=== PATIENT | male | born 1980 | race Caucasian/White ===

== ENCOUNTER 2017-02-27 17:41 | Emergency (ER) | payer SELFPAY ==
[~2017-02-27] VITALS: Ht 175.3 cm; Wt 81.6 kg
[2017-02-27] MEDS ORDERED: LORazepam 2 MG/ML VIAL (FOR ER USE) IM ONE (18:00)
[2017-02-27] MEDS ORDERED: DIPHENHYDRAMINE INJ 50 MG/ML VIAL IM ONE (18:00)
[2017-02-27] MEDS ORDERED: HALOPERIDOL LACTATE 5 MG/ML VIAL IM ONE (18:00)
[2017-02-27] MEDS ORDERED: KETAMINE HCL 500 MG/10 ML VIAL IM ONE (18:15)
[2017-02-28 05:35] VITALS: BP_SYST 106
== END 2017-02-28 05:35 | disposition home or self-care (01) ==
LOC: SED 17:41
DX: F10.129 Alcohol abuse with intoxication, unspecified (principal)
CPT/HCPCS: 96372; 99284; J1200; J1630; J2060

== ENCOUNTER 2018-07-15 17:36 | Emergency (ER) | payer MEDICAID ==
[~2018-07-15] VITALS: Ht 182.9 cm; Wt 59.0 kg
[2018-07-15 17:55] VITALS: BP_SYST 132
[2018-07-15] MEDS ORDERED: HYDROcodone/ACETAMIN 7.5-325 MG TAB PO ONE (20:15)
[2018-07-15] MEDS ORDERED: HYDROcodone/ACETAMIN 7.5-325 MG TAB ONE (20:28)
[2018-07-16 00:26] VITALS: BP_SYST 128
== END 2018-07-16 00:26 | disposition home or self-care (01) ==
LOC: SED 17:36
DX: S02.601A Fracture of unspecified part of body of right mandible, initial encounter for closed fracture (principal); S02.602A Fracture of unspecified part of body of left mandible, initial encounter for closed fracture; F17.210 Nicotine dependence, cigarettes, uncomplicated; Z71.6 Tobacco abuse counseling; Y04.0XXA Assault by unarmed brawl or fight, initial encounter; Y93.89 Activity, other specified; Y92.89 Other specified places as the place of occurrence of the external cause; Y99.8 Other external cause status
CPT/HCPCS: 70486-TC; 99284

== ENCOUNTER 2018-09-11 21:55 | Emergency (ER) | payer MEDICAID ==
[2018-09-11] MEDS ORDERED: LORazepam 2 MG/ML VIAL (FOR ER USE) IM ONE (22:00)
[2018-09-11] MEDS ORDERED: HALOPERIDOL LACTATE 5 MG/ML VIAL IM ONE (22:00)
[2018-09-11] MEDS ORDERED: DIPHENHYDRAMINE INJ 50 MG/ML VIAL IM ONE (22:00)
[2018-09-11 23:16] LABS: BARBITURATE, URINE NEGATIVE (NEG <=200); BENZODIAZEPINE, URINE NEGATIVE (NEG <=150); CANNABINOID, URINE POSITIVE (NEG <=50); COCAINE, URINE NEGATIVE (NEG <=150); METHAMPHETAMINES SCREEN,URINE POSITIVE (NEG <=500); OPIATE, URINE NEGATIVE (NEG <=100); PHENCYCLIDINE SCREEN,URINE NEGATIVE (NEG <=25); UR TRICYCLIC ANTIDEPRESSANTS NEGATIVE (NEG <=300); URINE AMPHETAMINE POSITIVE (NEG <=500); URINE METHADONE NEGATIVE (NEG <=200); URINE OXYCODONE SCREEN NEGATIVE (NEG <=100); URINE PROPOXYPHENE SCREEN NEGATIVE (NEG <=300)
[2018-09-11 23:22] LABS: BASOPHILS # (AUTO) 0.1 K/uL (0.0-0.2); BASOPHILS % (AUTO) 1.1 % (0.0-2.0); EOSINOPHILS # (AUTO) 0.2 K/uL (0.0-0.4); EOSINOPHILS % (AUTO) 3.1 % (0.0-4.0); HEMATOCRIT 43.2 % (36-54); HEMOGLOBIN 14.7 g/dL (14.0-18.0); LYMPHOCYTES # (AUTO) 2.6 K/uL (1.0-5.5); LYMPHOCYTES % (AUTO) 42.7 % (20.5-51.5); MEAN CORPUSCULAR HEMOGLOBIN 32 pg (27-31); MEAN CORPUSCULAR HGB CONC 34 % (32-36); MEAN CORPUSCULAR VOLUME 94 fL (79.0-98.0); MONOCYTES # (AUTO) 0.4 K/uL (0.0-1.0); MONOCYTES % (AUTO) 7.1 % (1.7-9.3); NEUTROPHILS # (AUTO) 2.7 K/uL (1.8-7.7); PLATELET COUNT (AUTO) 373 K/uL (130-430); RED BLOOD CELL COUNT(AUTO) 4.59 MIL/uL (4.2-6.2); RED CELL DISTRIBUTION WIDTH 13.4 % (9.0-15.0)
[2018-09-11 23:33] LABS: ANION GAP 13 (5-15); CALCIUM 8.5 mg/dL (8.4-11.0); CHLORIDE 103 mmol/L (98-107); CREATININE 0.87 mg/dL (0.55-1.30); GLUCOSE 78 mg/dL (70-99); POTASSIUM 3.5 mmol/L (3.5-5.1); SODIUM SERUM 138 mmol/L (136-145); UREA NITROGEN, BLOOD 12 mg/dL (8-21)
[2018-09-11 23:34] LABS: GFR AFRICAN AMERICAN 126 mL/min (>90)
[2018-09-11 23:54] LABS: ALANINE AMINOTRANSFERASE 36 U/L (12-78); ALBUMIN 3.6 g/dL (3.4-4.8); ALCOHOL, BLOOD 297 mg/dL (<10); ASPARTATE AMINOTRANSFERASE 40 U/L (10-37); TOTAL BILIRUBIN 0.3 mg/dL (0.0-1.0)
[2018-09-11 23:55] LABS: ACETAMINOPHEN < 1 ug/mL (1-30)
[2018-09-12 09:36] VITALS: BP_SYST 116
== END 2018-09-12 09:36 | disposition home or self-care (01) ==
LOC: SED 21:55
DX: F19.10 Other psychoactive substance abuse, uncomplicated (principal); R03.0 Elevated blood-pressure reading, without diagnosis of hypertension
CPT/HCPCS: 36415; 80053; 80307; 85025; 93005; 96372; 99284; G0480; G0481; G0482; J1200; J1630; J2060; 99283

== ENCOUNTER 2021-02-12 18:27 | Emergency (ER) | payer MEDICAID ==
[~2021-02-12] VITALS: Ht 167.6 cm; Wt 59.9 kg
--- NOTE | 2021-02-12 18:35 | NUR ---
Patient triaged and placed in waiting room. VSS and patient appears in no acute distress at this time. Accompanied by EMS and therapist , awaiting available bed, and MD notified of need for MSE.
--- NOTE | 2021-02-12 19:00 | NUR ---
Dr Bautista evaluating patient at bedside
--- NOTE | 2021-02-12 22:29 | NUR ---
pt bib bls run c/c etoh. pt gcs 15. denies SI or HI. denies any medical complaints. report received from [facility] bls unit. pt eloped prior to being placed in H1, pt eloped with girlfriend.
--- NOTE | 2021-02-12 22:32 | NUR ---
Pt eloped from ER at this time
== END 2021-02-12 22:00 | disposition left against medical advice (07) ==
LOC: SED 18:27
DX: S09.93XA Unspecified injury of face, initial encounter (principal); W18.39XA Other fall on same level, initial encounter; Y93.89 Activity, other specified; Y92.89 Other specified places as the place of occurrence of the external cause; Y99.8 Other external cause status; Z53.21 Procedure and treatment not carried out due to patient leaving prior to being seen by health care provider

== ENCOUNTER 2021-06-22 14:21 | Emergency (ER) | payer MEDICAID, SELFPAY ==
[~2021-06-22] VITALS: Ht 182.9 cm; Wt 68.0 kg
[2021-06-22 15:15] VITALS: BP_SYST 129
[2021-06-22] MEDS ORDERED: ACETAMINOPHEN 325 MG TABLET PO ONE (17:00)
== END 2021-06-22 17:02 | disposition left against medical advice (07) ==
LOC: SED 14:21
DX: R10.11 Right upper quadrant pain (principal)
CPT/HCPCS: 99281; 99283

== ENCOUNTER 2021-12-05 18:53 | Emergency (ER) | payer MEDICAID ==
[~2021-12-05] VITALS: Ht 177.8 cm; Wt 72.6 kg
[2021-12-05 18:53] VITALS: BP_SYST 96
[2021-12-05] MEDS ORDERED: NACL 0.9% 1,000 ML IV ONE (19:15)
[2021-12-05 19:45] LABS: BASOPHILS # (AUTO) 0.1 K/uL (0.0-0.2); BASOPHILS % (AUTO) 0.8 % (0.0-2.0); EOSINOPHILS % (AUTO) 0.4 % (0.0-4.0); HEMATOCRIT 40.4 % (36-54); LYMPHOCYTES # (AUTO) 1.4 K/uL (1.0-5.5); LYMPHOCYTES % (AUTO) 21.6 % (20.5-51.5); MEAN CORPUSCULAR HEMOGLOBIN 33 pg (27-31); MEAN CORPUSCULAR HGB CONC 35 % (32-36); MEAN CORPUSCULAR VOLUME 95 fL (79.0-98.0); MONOCYTES # (AUTO) 0.6 K/uL (0.0-1.0); MONOCYTES % (AUTO) 9.7 % (1.7-9.3); NEUTROPHILS # (AUTO) 4.5 K/uL (1.8-7.7); NEUTROPHILS % (AUTO) 67.5 % (40.0-70.0); PLATELET COUNT (AUTO) 343 K/uL (130-430); RED BLOOD CELL COUNT(AUTO) 4.24 MIL/uL (4.2-6.2); RED CELL DISTRIBUTION WIDTH 14.7 % (9.0-15.0); WHITE BLOOD COUNT (AUTO) 6.6 K/uL (4.8-10.8)
[2021-12-05 19:58] LABS: ANION GAP 13 (5-15); CALCIUM 7.8 mg/dL (8.4-11.0); CHLORIDE 99 mmol/L (98-107); CREATININE 1.08 mg/dL (0.55-1.30); GLUCOSE 126 mg/dL (70-99); POTASSIUM 3.7 mmol/L (3.5-5.1); SODIUM SERUM 135 mmol/L (136-145); UREA NITROGEN, BLOOD 12 mg/dL (8-21)
[2021-12-05 20:02] LABS: GFR AFRICAN AMERICAN 97 mL/min (>90)
[2021-12-05 20:05] LABS: ALANINE AMINOTRANSFERASE 235 U/L (12-78); ALBUMIN 2.5 g/dL (3.4-4.8); ASPARTATE AMINOTRANSFERASE 225 U/L (10-37)
[2021-12-05 20:10] LABS: ACETAMINOPHEN < 1 ug/mL (1-30); ALCOHOL, BLOOD 479 mg/dL (<10)
--- NOTE | 2021-12-05 20:39 | NUR ---
PT WILL NOT ALLOW TO BE PLACED ON MONITOR
--- NOTE | 2021-12-05 20:58 | NUR ---
Pt to CT at this time
--- NOTE | 2021-12-05 21:18 | NUR ---
Pt back from CT
--- NOTE | 2021-12-05 21:20 | NUR ---
Placed in room 07 . Placed on cardiac technologist, blood pressure machine and pulse oximeter. To gown for exam. Side rails up. Report given to DOREEN Alegria
--- NOTE | 2021-12-05 21:24 | NUR ---
Pt refusing medications at this time, refusing IV start, and refusing for me to take a set of vitals. aware and primary RN Raji made aware.
--- NOTE | 2021-12-05 21:24 | NUR ---
CALLED PT MALLORY AT [phone] LEFT VM ON HER MOBILE WITH HOSPITAL NUMBER TO CALL BACK.
[2021-12-05] MEDS ORDERED: LORazepam 2 MG/ML VIAL IM ONE (22:15)
--- NOTE | 2021-12-05 23:29 | NUR ---
Patient given written and verbal discharge instructions and verbalizes understanding. ER DR KAMILLE YOUNG discussed with patient the results and treatment provided. Patient in stable condition. Patient refused to sign discharge, Dr Elizondo made aware Opportunity for questions provided and answered. Medication side effect fact sheet provided.
== END 2021-12-05 23:25 | disposition home or self-care (01) ==
LOC: SED 18:53
DX: F10.229 Alcohol dependence with intoxication, unspecified (principal); R41.82 Altered mental status, unspecified; Y90.8 Blood alcohol level of 240 mg/100 ml or more; Z79.899 Other long term (current) drug therapy
CPT/HCPCS: 99284; 70450; 80053; 85025; 36415; 76376; G0482; G0480; G0481

== ENCOUNTER 2021-12-13 12:05 | Inpatient (IN) | payer MEDICAID ==
[~2021-12-13] VITALS: Ht 182.9 cm; Wt 69.9 kg
[2021-12-13 12:19] VITALS: BP_SYST 107
--- NOTE | 2021-12-13 12:58 | NUR ---
PATIENT BROUGHT TO BED 1 VIA WHEELCHAIR
[2021-12-13] MEDS ORDERED: FUROSEMIDE 100 MG/10 ML VIAL IVP ONE (13:00)
--- NOTE | 2021-12-13 13:00 | NUR ---
DR KARIMI AT BEDSIDE EVALUATING PATIENT
--- NOTE | 2021-12-13 13:03 | NUR ---
41YO M WITH C/O BILATERAL PEDAL EDEMA X 1 WEEK. ALSO COMPLAINS OF FATIGUE, WITH SOB WITH ~10STEPS. DENIES CHEST PAIN. DENIES COUGH. IN ED, AOX3. WITH CRACKLES ON BILATERAL BASES. HOB ELEVATED TO 90 DEGREES. ERMD MADE AWARE OF PT STATUS. PMH: DENIES NKA
[2021-12-13 13:17] LABS: BASOPHILS # (AUTO) 0.3 K/uL (0.0-0.2); BASOPHILS % (AUTO) 3.9 % (0.0-2.0); EOSINOPHILS # (AUTO) 0.1 K/uL (0.0-0.4); EOSINOPHILS % (AUTO) 1.7 % (0.0-4.0); HEMATOCRIT 38.4 % (36-54); HEMOGLOBIN 13.1 g/dL (14.0-18.0); LYMPHOCYTES # (AUTO) 0.6 K/uL (1.0-5.5); LYMPHOCYTES % (AUTO) 8.1 % (20.5-51.5); MEAN CORPUSCULAR HEMOGLOBIN 33 pg (27-31); MEAN CORPUSCULAR HGB CONC 34 % (32-36); MEAN CORPUSCULAR VOLUME 97 fL (79.0-98.0); MONOCYTES # (AUTO) 0.7 K/uL (0.0-1.0); MONOCYTES % (AUTO) 9.6 % (1.7-9.3); NEUTROPHILS # (AUTO) 5.5 K/uL (1.8-7.7); NEUTROPHILS % (AUTO) 76.7 % (40.0-70.0); PLATELET COUNT (AUTO) 199 K/uL (130-430); RED BLOOD CELL COUNT(AUTO) 3.97 MIL/uL (4.2-6.2); RED CELL DISTRIBUTION WIDTH 15.3 % (9.0-15.0); WHITE BLOOD COUNT (AUTO) 7.1 K/uL (4.8-10.8)
[2021-12-13 13:29] LABS: ANION GAP 11 (5-15); CALCIUM 7.9 mg/dL (8.4-11.0); CHLORIDE 89 mmol/L (98-107); CREATININE 1.15 mg/dL (0.55-1.30); GLUCOSE 136 mg/dL (70-99); POTASSIUM 4.1 mmol/L (3.5-5.1); SODIUM SERUM 124 mmol/L (136-145); UREA NITROGEN, BLOOD 16 mg/dL (8-21)
[2021-12-13 13:41] LABS: GFR AFRICAN AMERICAN 90 mL/min (>90)
[2021-12-13 13:46] LABS: ALANINE AMINOTRANSFERASE 267 U/L (12-78); ALBUMIN 2.3 g/dL (3.4-4.8); ASPARTATE AMINOTRANSFERASE 328 U/L (10-37); TOTAL BILIRUBIN 3.6 mg/dL (0.0-1.0)
[2021-12-13 14:13] LABS: CKMB RELATIVE INDEX 2.8 (0.0-2.9); CREATINE KINASE MB 9.6 ng/mL (0-3.6)
[2021-12-13] MEDS ORDERED: cefTRIAXone 1 GM IVPB PREMIX 50 ML IV ONE (14:15)
--- NOTE | 2021-12-13 14:15 | NUR ---
Notified ED Admitting regarding Dr. Rogel's request for admission/transfer. Per Dr. Rogel, pt is stable for transfer. Will notify insurance claims analyst regarding this matter. PER FACESHEET: [facility]
[2021-12-13] MEDS ORDERED: LORazepam 2 MG/ML VIAL IVP ONE ×2 (14:30→15:30)
[2021-12-13] MEDS ORDERED: HALOPERIDOL LACTATE 5 MG/ML VIAL IM ONE (15:30)
[2021-12-13] MEDS ORDERED: HALOPERIDOL LACTATE 5 MG/ML VIAL ONE (15:36)
[2021-12-13] MEDS ORDERED: LORazepam 2 MG/ML VIAL ONE (15:36)
--- NOTE | 2021-12-13 16:52 | NUR ---
PAGING FOR ADMISSION: [facility]. BEDOYA IS PCP [phone] *ATTEMPTED TO CONTACT DEMAND EQUIPMENT REPAIRER REGARDING THIS MATTER. HAVE OT RECEIVED ANY CALL FROM THE DEMAND EQUIPMENT REPAIRER. DUE TO DELAY OF CARE, WILL CALL TO HAVE PT ADMITTED. CUSTOM TAILOR AND MD AWARE.
--- NOTE | 2021-12-13 17:27 | NUR ---
# 16 FR Bautista catheter with use of sterile technique. Immediate return of 250 cc YELLOW urine noted. Bedside drainage bag placed below level of bladder. Urine sample collected and sent to lab. Pt tolerated procedure well. condom cath attempted 2x but dislodged
--- NOTE | 2021-12-13 17:30 | NUR ---
Physician order given to place soft type restraints to upper and lower extremities to prevent patient harm. Resraints placed with quick-release ties to bed frame. Will monitor patient frequently.
--- NOTE | 2021-12-13 17:41 | NUR ---
COVID SWAB SENT TO LAB 17:38.
[2021-12-13] MEDS ORDERED: NALOXONE HCL 0.4 MG/ML AMP (NARCAN) IVP PRN ×2 (17:45)
[2021-12-13] MEDS ORDERED: ONDANSETRON HCL 4 MG/2 ML VIAL IVP PRN (17:45)
[2021-12-13] MEDS ORDERED: NACL 0.9% 1,000 ML IV SCH (17:45)
[2021-12-13] MEDS ORDERED: MUPIROCIN 2% TOPICAL OINTMENT 22 GM NS PRN (17:45)
[2021-12-13] MEDS ORDERED: MAGNESIUM SULFATE 50 ML IV PRN (17:45)
[2021-12-13] MEDS ORDERED: MORPHINE 2 MG/ML INJ. SYRINGE IVP PRN ×2 (17:45)
[2021-12-13] MEDS ORDERED: POTASSIUM CHLORIDE 20 MEQ TAB.PRT.SR PO PRN (17:45)
[2021-12-13] MEDS ORDERED: ACETAMINOPHEN 325 MG TABLET PO PRN ×2 (17:45→18:00)
--- NOTE | 2021-12-13 18:30 | NUR ---
Admit bed requested Patient will be admitted to care of . Admitted to tele unit. Diagnosis chf exacerbation Inpatient (Yes or No) yes Observation (Yes or No) no Orientation concerns or request close to nursing station (Yes or No) yes Covid Status neg On vent or bipap no Isolation requirements no Needs a sitter no From Home (Yes or if No enter name of facility) yes Requires Dialysis (Yes or No) no Med Rec Completed (Yes of No) yes
--- NOTE | 2021-12-13 19:07 | NUR ---
REPORT GIVEN TO DOREEN CABALLERO. ALL CARES TRANSFERRED AT THIS TIME.
--- NOTE | 2021-12-13 19:52 | NUR ---
ADMIT NOTE Received pt from ER to the floor with a diagnosis of CHF EXACCERBATION. Admission process initiated. patient oriented to pain management, safety and call light-teach back done.
[2021-12-13 20:00] VITALS: BP_SYST 128
[2021-12-13] MEDS: chlordiazePOXIDE HCL 25 MG CAPSULE PO SCH (20:39)
[2021-12-13] MEDS: LORazepam 2 MG/ML VIAL IVP PRN ×3 (20:40→22:09)
--- NOTE | 2021-12-13 20:55 | NUR ---
ADMISSION OF A 41 YEAR OLD MALE FOR CHF UNDER THE CARE OF DOCTOR JAYANT. GIVEN NEEDED ATIVAN FOR ANXIETY. PATIENT OFFERED BEDPAN FOR BOWEL MOVEMENT. BOWEL MOVEMENT OUTPUT IS A SMALL AMOUNT OF BROWN LIQUID IN CONSISTENCY. REPLACEMENT OF PAPER BOX CUTTER REMOVED BY PATIENT. EDUCATION ABOUT LEAVING HEART MONITOR IN PLACE TO MONITOR HEART RHYTHM FOR PATIENT HEALTH AND WELLNESS. RELEASE AND REPLACEMENT OF RESTRAINTS FOR ADL'S. PATIENT IS UNSTEADY ON HIS FEET AND A FALL RISK. TOLERATES PROCEDURE(S) WELL AND VERBALIZES UNDERSTANDING OF TEACHING BUT REMAINS FORGETFUL. SWALLOWS PILLS WHOLE WITH THIN LIQUID WELL. MIRYAM DIEZ RN
[2021-12-14] MEDS: LORazepam 2 MG/ML VIAL IVP PRN ×9 (00:19→21:45)
--- NOTE | 2021-12-14 01:46 | NUR ---
CONSULTATION PAGED/CALLED Reason for Consultation: TRANSAMINITIS Person Who was Notified: KIAN Consulting Physician: CHRISTIE Investment Representative Specialty: Ordering Physician: JAYANT
--- NOTE | 2021-12-14 02:06 | NUR ---
CONSULTATION PAGED/CALLED Reason for Consultation: CHF EXACERBATION Person Who was Notified: KIAN Consulting Physician: MYRANDA Supervisor [employer] Specialty: Ordering Physician: JAYANT
[2021-12-14 05:34] VITALS: BP_SYST 122
[2021-12-14 08:00] VITALS: BP_SYST 144
[2021-12-14] MEDS: chlordiazePOXIDE HCL 25 MG CAPSULE PO SCH ×3 (08:14→21:50)
[2021-12-14] MEDS: FUROSEMIDE 40 MG/4 ML VIAL IVP SCH (08:15)
[2021-12-14] MEDS ORDERED: FOLIC ACID 1 MG, THIAMINE HCL 100 MG, MAGNESIUM SULFATE 1 GM, MVI 10 ML in NACL 0.9% 1,... IV ONE (08:45)
--- NOTE | 2021-12-14 08:48 | NUR ---
MD CHA CALLED LILLIAN AVILA SPOKE WITH LAURA TO INFORM HIM THAT TRANSFER OF CARE WILL BE DONE UNDER LILLIAN AVILA ORDERED BY JACQUI FONG.
[2021-12-14] MEDS: HALOPERIDOL LACTATE 5 MG/ML VIAL IM PRN ×2 (09:00→16:07)
[2021-12-14] MEDS ORDERED: THIAMINE HCL 100 MG, MAGNESIUM SULFATE 1 GM in NS 100 ML IV ONE (10:00)
[2021-12-14] MEDS ORDERED: FOLIC ACID 1 MG, MVI 10 ML in NACL 0.9% 1,000 ML IV ONE (10:00)
[2021-12-14] MEDS ORDERED: LOSARTAN POTASSIUM 25 MG TABLET PO ONE (10:30)
[2021-12-14] MEDS ORDERED: CARVEDILOL 6.25 MG TABLET (COREG) PO ONE (10:30)
[2021-12-14 11:48] LABS: BILIRUBIN,URINE NEGATIVE (NEGATIVE); BLOOD, URINE 3+ (NEGATIVE); CLARITY/URINE SL CLOUDY (CLEAR); COLOR,URINE YELLOW (YELLOW); GLUCOSE,URINE NEGATIVE (NEGATIVE); KETONES,URINE TRACE (NEGATIVE); LEUKOCYTE ESTERASE ,URINE TRACE (NEGATIVE); NITRITE, URINE NEGATIVE (NEGATIVE); PH,URINE 7.5 (5.0-8.0); PROTEIN URINE NEGATIVE (NEGATIVE); UROBILINOGEN,URINE 0.2 (0.2-1.0)
[2021-12-14 12:00] VITALS: BP_SYST 132
[2021-12-14 12:38] LABS: BASOPHILS % (AUTO) 0.4 % (0.0-2.0); EOSINOPHILS % (AUTO) 0.5 % (0.0-4.0); HEMATOCRIT 42.7 % (36-54); HEMOGLOBIN 14.5 g/dL (14.0-18.0); LYMPHOCYTES % (AUTO) 11.8 % (20.5-51.5); MEAN CORPUSCULAR HEMOGLOBIN 33 pg (27-31); MEAN CORPUSCULAR HGB CONC 34 % (32-36); MEAN CORPUSCULAR VOLUME 96 fL (79.0-98.0); MONOCYTES # (AUTO) 0.8 K/uL (0.0-1.0); MONOCYTES % (AUTO) 9.6 % (1.7-9.3); NEUTROPHILS # (AUTO) 6.3 K/uL (1.8-7.7); NEUTROPHILS % (AUTO) 77.7 % (40.0-70.0); PLATELET COUNT (AUTO) 204 K/uL (130-430); RED BLOOD CELL COUNT(AUTO) 4.43 MIL/uL (4.2-6.2); RED CELL DISTRIBUTION WIDTH 15.4 % (9.0-15.0); WHITE BLOOD COUNT (AUTO) 8.2 K/uL (4.8-10.8)
[2021-12-14 13:01] LABS: ALBUMIN 2.3 g/dL (3.4-4.8); BILIRUBIN,DIRECT 2.3 mg/dL (0.0-0.3); CALCIUM 8.6 mg/dL (8.4-11.0); CREATININE 0.9 mg/dL (0.55-1.30); TOTAL BILIRUBIN 3.6 mg/dL (0.0-1.0)
[2021-12-14 13:17] LABS: POTASSIUM 2.7 mmol/L (3.5-5.1)
[2021-12-14 14:10] LABS: BACTERIA,URINE None Seen /HPF (None Seen); RBC,URINE 80-100 /HPF (0-3); WBC,URINE NONE SEEN /HPF (0-3)
[2021-12-14 14:25] LABS: BARBITURATE, URINE NEGATIVE (NEG <=200); BENZODIAZEPINE, URINE POSITIVE (NEG <=150); CANNABINOID, URINE POSITIVE (NEG <=50); COCAINE, URINE NEGATIVE (NEG <=150); METHAMPHETAMINES SCREEN,URINE NEGATIVE (NEG <=500); OPIATE, URINE NEGATIVE (NEG <=100); PHENCYCLIDINE SCREEN,URINE NEGATIVE (NEG <=25); UR TRICYCLIC ANTIDEPRESSANTS NEGATIVE (NEG <=300); URINE AMPHETAMINE NEGATIVE (NEG <=500); URINE METHADONE NEGATIVE (NEG <=200); URINE OXYCODONE SCREEN NEGATIVE (NEG <=100); URINE PROPOXYPHENE SCREEN NEGATIVE (NEG <=300)
[2021-12-14] MEDS ORDERED: POTASSIUM CHLORIDE 40 MEQ in NS 250 ML IV ONE (15:00)
[2021-12-14 16:00] VITALS: BP_SYST 135
[2021-12-14 20:03] VITALS: BP_SYST 116
[2021-12-14] MEDS: CARVEDILOL 6.25 MG TABLET (COREG) PO SCH (21:50)
[2021-12-14] MEDS: SPIRONOLACTONE 25 MG TABLET (ALDACTONE) PO SCH (21:51)
[2021-12-15] MEDS: LORazepam 2 MG/ML VIAL IVP PRN ×3 (00:46→11:54)
[2021-12-15] MEDS: HALOPERIDOL LACTATE 5 MG/ML VIAL IM PRN ×2 (00:50→15:50)
[2021-12-15 01:25] VITALS: BP_SYST 118
--- NOTE | 2021-12-15 06:23 | NUR ---
AGITATION WITH ANXIETY AND WITHDRAWAL SYMPTOMS THROUGHOUT VARIOUS TIMES THIS SHIFT. RESPONDS TO REDIRECTION BUT IS UNABLE FOLLOW THROUGH WITH TEACHING DUE TO FORGETFULNESS. NEEDED MEDICATION GIVEN FOR SYMPTOMS OF ANXIETY AND AGITATION. BED BATH, ORAL CARE AND LINEN CHANGE COMPLETION MID SHIFT. MIRYAM DIEZ RN
[2021-12-15 08:00] VITALS: BP_SYST 102
--- NOTE | 2021-12-15 08:00 | NUR ---
Received patient lethargic but with stable vital signs. He denies any pain or discomfort at this time.
[2021-12-15 09:57] LABS: INR 1.1 (0.80-1.20)
[2021-12-15] MEDS: SPIRONOLACTONE 25 MG TABLET (ALDACTONE) PO SCH ×2 (10:11→21:40)
[2021-12-15] MEDS: CARVEDILOL 6.25 MG TABLET (COREG) PO SCH ×2 (10:13→21:40)
[2021-12-15] MEDS: LOSARTAN POTASSIUM 25 MG TABLET PO SCH (10:13)
[2021-12-15] MEDS: DOCUSATE SODIUM 100 MG CAPSULE PO PRN (10:13)
[2021-12-15] MEDS: chlordiazePOXIDE HCL 25 MG CAPSULE PO SCH ×3 (10:14→21:39)
[2021-12-15 10:31] LABS: BASOPHILS # (AUTO) 0.1 K/uL (0.0-0.2); EOSINOPHILS # (AUTO) 0.1 K/uL (0.0-0.4); EOSINOPHILS % (AUTO) 2.3 % (0.0-4.0); HEMATOCRIT 42.1 % (36-54); HEMOGLOBIN 14.2 g/dL (14.0-18.0); LYMPHOCYTES # (AUTO) 0.9 K/uL (1.0-5.5); LYMPHOCYTES % (AUTO) 14.6 % (20.5-51.5); MEAN CORPUSCULAR HEMOGLOBIN 33 pg (27-31); MEAN CORPUSCULAR HGB CONC 34 % (32-36); MEAN CORPUSCULAR VOLUME 97 fL (79.0-98.0); MONOCYTES # (AUTO) 0.7 K/uL (0.0-1.0); MONOCYTES % (AUTO) 11.2 % (1.7-9.3); NEUTROPHILS # (AUTO) 4.3 K/uL (1.8-7.7); NEUTROPHILS % (AUTO) 70.9 % (40.0-70.0); PLATELET COUNT (AUTO) 208 K/uL (130-430); RED BLOOD CELL COUNT(AUTO) 4.33 MIL/uL (4.2-6.2); RED CELL DISTRIBUTION WIDTH 15.8 % (9.0-15.0); WHITE BLOOD COUNT (AUTO) 6.1 K/uL (4.8-10.8)
[2021-12-15 10:36] LABS: ALBUMIN 1.9 g/dL (3.4-4.8); CALCIUM 8.3 mg/dL (8.4-11.0); CREATININE 1.05 mg/dL (0.55-1.30); POTASSIUM 3.1 mmol/L (3.5-5.1); THYROID STIMULATING HORMONE 2.37 uIu/mL (0.36-3.74)
[2021-12-15] MEDS ORDERED: KCL 20 mEq in 100 mL (PREMIX) 100 ML IV ONE ×2 (11:15→11:30)
[2021-12-15] MEDS: FUROSEMIDE 40 MG/4 ML VIAL IVP SCH (11:32)
[2021-12-15 11:33] VITALS: BP_SYST 94
[2021-12-15 15:52] VITALS: BP_SYST 86
[2021-12-15 20:20] VITALS: BP_SYST 109
--- NOTE | 2021-12-16 00:10 | NUR ---
ASSUMPTION OF CARE BEDSIDE REPORT RECEIVED FROM DOREEN WITT. AT THIS TIME, PATIENT IS RESTING IN BED, STABLE, NO SIGNS OF RESPIRATORY DISTRESS. PATIENT VERBALIZES NO PAIN. PLAN OF CARE FOR THE EVENING IS COMMUNICATED WITH THE PATIENT. BED IS LOCKED, ALARMED, AND AT THE LOWEST LEVEL. FALL, SAFETY, RESPIRATORY, AND RESTRAINT PRECAUTIONS WILL BE TAKEN THROUGHOUT THE SHIFT. SIGNS OF INJURY RELATED TO RESTRAINTS WILL BE ASSESSED AT LEAST [id number] DURING THE SHIFT.
[2021-12-16 01:09] VITALS: BP_SYST 102
--- NOTE | 2021-12-16 01:45 | NUR ---
Norma WISDOM PAGED DR. AIKEN (POWER TRUCK DRIVER FOR DR. SABA) PAGED BACK, IT WAS COMMUNICATED TO MD THAT PATIENT IS HAVING SEVERE ANXIETY AT THIS TIME, HIS RESPIRATORY RATE IS ELEVATED, BUT PRN ATIVAN NOT GIVEN DUE TO LOW BLOOD PRESSURE OF 85/57. MD STATED HE DID NOT WANT TO ORDER IVF AT THIS TIME DUE TO PATIENT'S CHF. MD GAVE NEW ORDERS FOR STAT TESTS, ALL ORDERS READ BACK, VERIFIED, AND WILL CALL MD BACK FOR ANY CRITICAL RESULTS. Addendum: 12/16/21 at 0457 by [facility] agriculture engineer MD ALSO GAVE ORDERS FOR RESTRAINTS AT THIS TIME. ORDER READ BACK, VERIFIED, AND ENTERED.
[2021-12-16 02:24] LABS: BASOPHILS # (AUTO) 0.1 K/uL (0.0-0.2); BASOPHILS % (AUTO) 0.8 % (0.0-2.0); EOSINOPHILS % (AUTO) 0.6 % (0.0-4.0); HEMATOCRIT 40.7 % (36-54); HEMOGLOBIN 13.8 g/dL (14.0-18.0); LYMPHOCYTES # (AUTO) 0.9 K/uL (1.0-5.5); LYMPHOCYTES % (AUTO) 11.4 % (20.5-51.5); MEAN CORPUSCULAR HEMOGLOBIN 33 pg (27-31); MEAN CORPUSCULAR HGB CONC 34 % (32-36); MEAN CORPUSCULAR VOLUME 97 fL (79.0-98.0); MONOCYTES # (AUTO) 0.9 K/uL (0.0-1.0); MONOCYTES % (AUTO) 11.2 % (1.7-9.3); NEUTROPHILS # (AUTO) 5.9 K/uL (1.8-7.7); PLATELET COUNT (AUTO) 248 K/uL (130-430); RED CELL DISTRIBUTION WIDTH 15.7 % (9.0-15.0); WHITE BLOOD COUNT (AUTO) 7.8 K/uL (4.8-10.8)
[2021-12-16 02:27] LABS: CALCIUM 8.1 mg/dL (8.4-11.0); CREATININE 1.07 mg/dL (0.55-1.30)
--- NOTE | 2021-12-16 02:45 | NUR ---
CRITICAL FOR DR. NELLI SHAH (HIGH HEEL BUILDER FOR DR. SABA), HE WAS MADE AWARE THAT OF PATIENT'S CRITICAL VALUE OF ABG PH 7.54. MD GAVE ORDER FOR LIBRIUM 25 MG PO ONE TIME DOSE. ORDER READ BACK, VERIFIED, AND WILL BE GIVEN TO PATIENT.
[2021-12-16 02:51] LABS: ALBUMIN 1.9 g/dL (3.4-4.8); CREATININE 1.06 mg/dL (0.55-1.30); TOTAL BILIRUBIN 2.1 mg/dL (0.0-1.0)
[2021-12-16] MEDS ORDERED: chlordiazePOXIDE HCL 25 MG CAPSULE PO ONE (03:45)
--- NOTE | 2021-12-16 06:47 | NUR ---
CLOSING NOTE PATIENT LESS ANXIOUS AFTER EXTRA DOSE OF LIBRIUM ORDERED WAS GIVEN, HE WAS ABLE TO SLEEP ABOUT AN HOUR AFTER. AT THIS TIME, HE IS RESTING IN BED, STABLE, NO SIGNS OF RESPIRATORY DISTRESS. CALL LIGHT IS WITHIN REACH. BED IS LOCKED, ALARMED, AND AT THE LOWEST LEVEL. FALL, SAFETY, ASPIRATION, AND RESTRAINT PRECAUTIONS HAVE BEEN IN PLACE THROUGHOUT THE SHIFT. WILL CONTINUE TO MONITOR UNTIL SHIFT REPORT IS GIVEN AT BEDSIDE TO AM NURSE. SIGNS OF INJURY RELATED TO RESTRAINTS WERE CHECKED AT LEAST [id number] DURING THE SHIFT.
[2021-12-16 08:00] VITALS: BP_SYST 105
[2021-12-16] MEDS: chlordiazePOXIDE HCL 25 MG CAPSULE PO SCH ×3 (09:00→20:05)
[2021-12-16] MEDS: FUROSEMIDE 40 MG/4 ML VIAL IVP SCH (09:00)
[2021-12-16] MEDS: SPIRONOLACTONE 25 MG TABLET (ALDACTONE) PO SCH ×2 (09:00→20:04)
[2021-12-16] MEDS: CARVEDILOL 6.25 MG TABLET (COREG) PO SCH ×2 (09:00→20:05)
[2021-12-16] MEDS: LOSARTAN POTASSIUM 25 MG TABLET PO SCH (09:00)
--- NOTE | 2021-12-16 11:45 | NUR ---
ROUNDS LATE ENTRY DUE TO PT CARE 0800- PT APPEARS RESTLESS. BILATERAL WRIST RESTRAINTS IN PLACE 0900- FAMILY AT BEDSIDE. REMOVED RESTRAINTS AT THIS TIME, EDUCATED FAMILY NEED FOR RESTRAINTS AND THEY VERBALIZED UNDERSTANDING 1145- FAMILY LEFT BUILDING. PT APPEARED CALMER AND COMPLIANT AT THIS TIME. RESTRAINTS NOT APPLIED BACK
[2021-12-16 12:00] VITALS: BP_SYST 95
--- NOTE | 2021-12-16 12:43 | NUR ---
0800 pt assessed and pt has no change according to baseline status from previous. pt has no c/o pain. pt repositions self. pt is alert with slight confusion. pt cooperative with redirection. meds given and pt tolerated well, care resumed and continual rounding for safety.
--- NOTE | 2021-12-16 14:23 | NUR ---
currently pt has been walked to the restroom and pt had a large bm and urinated into the toilet, pt assisted with ambulation and back to the bed and restraints reapplied , care resumed
[2021-12-16] MEDS: HALOPERIDOL LACTATE 5 MG/ML VIAL IM PRN (19:58)
[2021-12-16] MEDS: LORazepam 2 MG/ML VIAL IVP PRN ×2 (20:02→22:56)
[2021-12-16 20:06] VITALS: BP_SYST 91
[2021-12-16 20:14] LABS: TPROTEIN U,24HR 4606.8 mg/24HR (0-130)
[2021-12-16] MEDS: LACTULOSE 20 GM/30 ML UDC PO SCH (22:59)
[2021-12-17] MEDS: LORazepam 2 MG/ML VIAL IVP PRN ×2 (00:02→00:41)
[2021-12-17 00:17] VITALS: BP_SYST 83
[2021-12-17] MEDS ORDERED: FURO-149 PO ×2 (08:43)
[2021-12-17] MEDS ORDERED: CARV6.2554 PO (08:43)
[2021-12-17] MEDS ORDERED: SPIR25TA6 PO ×2 (08:43)
[2021-12-17] MEDS ORDERED: LACT10SO6 PO (08:43)
[2021-12-17] MEDS ORDERED: LOSA25TA3 PO ×2 (08:43)
[2021-12-17 08:48] LABS: BASOPHILS # (AUTO) 0.1 K/uL (0.0-0.2); BASOPHILS % (AUTO) 1.3 % (0.0-2.0); EOSINOPHILS # (AUTO) 0.1 K/uL (0.0-0.4); EOSINOPHILS % (AUTO) 0.8 % (0.0-4.0); HEMATOCRIT 40.3 % (36-54); HEMOGLOBIN 13.5 g/dL (14.0-18.0); LYMPHOCYTES # (AUTO) 0.9 K/uL (1.0-5.5); LYMPHOCYTES % (AUTO) 12.1 % (20.5-51.5); MEAN CORPUSCULAR HEMOGLOBIN 33 pg (27-31); MEAN CORPUSCULAR HGB CONC 33 % (32-36); MEAN CORPUSCULAR VOLUME 97 fL (79.0-98.0); MONOCYTES # (AUTO) 1.1 K/uL (0.0-1.0); NEUTROPHILS # (AUTO) 5.3 K/uL (1.8-7.7); NEUTROPHILS % (AUTO) 70.8 % (40.0-70.0); PLATELET COUNT (AUTO) 257 K/uL (130-430); RED BLOOD CELL COUNT(AUTO) 4.14 MIL/uL (4.2-6.2); RED CELL DISTRIBUTION WIDTH 15.9 % (9.0-15.0); WHITE BLOOD COUNT (AUTO) 7.5 K/uL (4.8-10.8)
[2021-12-17] MEDS: CARVEDILOL 6.25 MG TABLET (COREG) PO SCH ×2 (08:48→21:21)
[2021-12-17] MEDS: FUROSEMIDE 40 MG/4 ML VIAL IVP SCH (08:48)
[2021-12-17] MEDS: SPIRONOLACTONE 25 MG TABLET (ALDACTONE) PO SCH (08:49)
[2021-12-17] MEDS: chlordiazePOXIDE HCL 25 MG CAPSULE PO SCH ×3 (08:50→21:16)
[2021-12-17] MEDS: LOSARTAN POTASSIUM 25 MG TABLET PO SCH (08:51)
[2021-12-17] MEDS: LACTULOSE 20 GM/30 ML UDC PO SCH ×3 (08:53→21:16)
[2021-12-17 09:23] LABS: CALCIUM 8.5 mg/dL (8.4-11.0); CREATININE 1.32 mg/dL (0.55-1.30); POTASSIUM 3.3 mmol/L (3.5-5.1)
[2021-12-17 11:25] VITALS: BP_SYST 90
--- NOTE | 2021-12-17 14:00 | NUR ---
HOOKER MACHINE TENDER ACSW Altagracia responded to a Social Service Consult request from Dr. Sheets for "Pt. homeless, needs [facility] resources". ACSW Altagracia met with patient at bedside. ACSW completed introductions, reason for referral, and placed business card on bedside table. Patient was not able to engage with this ACSW as he was observed to be falling asleep and difficult to understand during contact. ACSW will make another attempt when patient is more alert/oriented. ACSW will continue to be available as needed.
--- NOTE | 2021-12-17 14:17 | NUR ---
mother Eliza called several times today. ptis eating more an no c/o pain. pt is still very sleepy and repositioning self. meds given and pt tolerated well. care resumed an currently no resp. distress
--- NOTE | 2021-12-17 14:23 | NUR ---
pt is more sooperative today and toelrating rt tx, better. ptis eating more today and more alert then yesterday. no c/o pain and is sleeping well today. pt repositions self, car resumed and meds given today and tolerated well
[2021-12-17 15:34] VITALS: BP_SYST 100
--- NOTE | 2021-12-17 19:12 | NUR ---
gave report and tranfer of care to Hector LOGAN
[2021-12-17 20:40] VITALS: BP_SYST 94
[2021-12-17] MEDS: ZOLPIDEM TARTRATE 5 MG TABLET PO PRN (23:27)
[2021-12-18] VITALS (7 sets, daily range): BP systolic 85–112
[2021-12-18 06:53] LABS: BASOPHILS # (AUTO) 0.1 K/uL (0.0-0.2); BASOPHILS % (AUTO) 0.7 % (0.0-2.0); EOSINOPHILS # (AUTO) 0.1 K/uL (0.0-0.4); EOSINOPHILS % (AUTO) 1.4 % (0.0-4.0); HEMATOCRIT 40.3 % (36-54); HEMOGLOBIN 13.6 g/dL (14.0-18.0); LYMPHOCYTES # (AUTO) 0.9 K/uL (1.0-5.5); LYMPHOCYTES % (AUTO) 10.8 % (20.5-51.5); MEAN CORPUSCULAR HEMOGLOBIN 33 pg (27-31); MEAN CORPUSCULAR HGB CONC 34 % (32-36); MEAN CORPUSCULAR VOLUME 97 fL (79.0-98.0); MONOCYTES # (AUTO) 1.1 K/uL (0.0-1.0); MONOCYTES % (AUTO) 13.1 % (1.7-9.3); NEUTROPHILS # (AUTO) 6.2 K/uL (1.8-7.7); PLATELET COUNT (AUTO) 297 K/uL (130-430); RED BLOOD CELL COUNT(AUTO) 4.14 MIL/uL (4.2-6.2); RED CELL DISTRIBUTION WIDTH 15.8 % (9.0-15.0); WHITE BLOOD COUNT (AUTO) 8.3 K/uL (4.8-10.8)
[2021-12-18 08:19] LABS: CALCIUM 8.6 mg/dL (8.4-11.0); POTASSIUM 3.1 mmol/L (3.5-5.1)
[2021-12-18 08:20] LABS: CREATININE 1.22 mg/dL (0.55-1.30)
[2021-12-18] MEDS: LACTULOSE 20 GM/30 ML UDC PO SCH ×3 (08:39→20:24)
[2021-12-18] MEDS: chlordiazePOXIDE HCL 25 MG CAPSULE PO SCH ×3 (08:39→20:23)
[2021-12-18] MEDS: LOSARTAN POTASSIUM 25 MG TABLET PO SCH (08:40)
[2021-12-18] MEDS: CARVEDILOL 6.25 MG TABLET (COREG) PO SCH ×2 (08:40→20:24)
--- NOTE | 2021-12-18 09:48 | NUR ---
DR SABA HERE, MADE AWARE THAT BP WAS 88/80 HR 91, NEW ORDER GIVEN AND CARRIED OUT.
[2021-12-18] MEDS ORDERED: NS 100 ML IV ONE (10:00)
[2021-12-18] MEDS ORDERED: NACL 0.9% 500 ML IV ONE (10:00)
[2021-12-18] MEDS ORDERED: RIFAXIMIN 550 MG TABLET PO ONE (10:15)
[2021-12-18] MEDS ORDERED: POTASSIUM CHLORIDE 40 MEQ in NS 250 ML IV ONE (10:30)
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
[2021-12-18] MEDS: POTASSIUM CHLORIDE 20 mEq in 100 mL (PREMIX) 100 ML x 2 doses IV SCH ×2 (12:45→15:19)
--- NOTE | 2021-12-18 12:48 | NUR ---
PT'S MOM HERE AND DR SABA SPOKE WITH HER ON THE PHONE. FRANCE ALBRIGHT ALSO TALKED TO HER AT BEDSIDE.
--- NOTE | 2021-12-18 13:04 | NUR ---
SCOT BOTH DR SABA AND DR COPE S/W PATIENT'S MOTHER. PER PUBLIC SPEAKING TEACHER, MOTHER WILL DECIDE ON SEEING HOSPICE AFTER TALKING TO ANOTHER MD ON HIS CASE
--- NOTE | 2021-12-18 15:00 | NUR ---
DIVIDEND DEPOSIT VOUCHER CLERK LUIGI Frias followed up with patient and his mother Hailey regarding her engagement with physicians. She shared she would like patient discharged home at this time and will explore Hospice services at a later date. ACSW acknowledged their wishes, and again informed them hospice can still be contacted with patient information if she'd like information for a later time, but she declined. LUIGI Frias also provided information to patient's mother for 211 to obtain an copy of patient's medi-bro card and to transfer patient's medi-bro to [facility]. LUIGI Frias informed assigned DOREEN Gupta and laborer gold leaf Jeannie that patient's mother is requesting for discharge home with home health. ACSW also updated Case Management. ACSW will continue to be available as needed
[2021-12-18] MEDS ORDERED: RIFA200T10 PO ×2 (15:11)
--- NOTE | 2021-12-18 15:29 | NUR ---
SCIENTIFIC INFORMATICS PROJECT LEADER/ADDRESS UPDATE ACSW Altagracia emailed admitting to provide updated patient address obtained from patient's mother [id number] [place] [address]
--- NOTE | 2021-12-18 15:32 | NUR ---
PT'S MOM AT BEDSIDE SINCE THIS AM. SHE SPOKE WITH THE SSW MARTINEZ. UPDATED HER ON PT'S STATUS.
--- NOTE | 2021-12-18 17:01 | NUR ---
Dietitian Recommendations * Regular diet, Ensure Enlive BID (ONS yields 700 kcal/day, 40 gm protein/day) * Encourage increase PO intakes LP, MS, RD Please refer to Nutrition Assessment for details. Addendum: 12/18/21 at [address] Amended: Links added.
--- NOTE | 2021-12-18 18:02 | NUR ---
PT'S MOM REFUSED HOSPICE CARE. SHE WANTS TO TAKE PT HOME.
--- NOTE | 2021-12-18 19:30 | NUR ---
Received Patient from AM nurse. Patient is alert and oriented x2, following simple verbal commands. With held the restrain order since the patient is calm and cooperative. Patient is color to nursing station. Bed alam is ON. Reoriented the patient for fall risk and possible of injury. Patient refused for IV access insertion.
[2021-12-18] MEDS: RIFAXIMIN 550 MG TABLET PO SCH (20:23)
[2021-12-18] MEDS: ZOLPIDEM TARTRATE 5 MG TABLET PO PRN (20:23)
--- NOTE | 2021-12-19 | NUR ---
Patient still in. With held restrain. Patient calm. Food given and juice as requested by patient. Reoriented to situation. Maintain high fall risk precaution.
[2021-12-19 01:11] VITALS: BP_SYST 91
[2021-12-19 04:00] VITALS: BP_SYST 96
--- NOTE | 2021-12-19 06:13 | NUR ---
Patient awake however calm and quiet. watching TV. requested for iced water. fall precaution maintained.
[2021-12-19 07:57] LABS: ALBUMIN 1.9 g/dL (3.4-4.8); CALCIUM 8.2 mg/dL (8.4-11.0); CREATININE 0.96 mg/dL (0.55-1.30); POTASSIUM 3.6 mmol/L (3.5-5.1); TOTAL BILIRUBIN 1.3 mg/dL (0.0-1.0)
[2021-12-19] MEDS: chlordiazePOXIDE HCL 25 MG CAPSULE PO SCH ×2 (09:00→15:00)
[2021-12-19] MEDS: CARVEDILOL 6.25 MG TABLET (COREG) PO SCH (09:18)
[2021-12-19] MEDS: LACTULOSE 20 GM/30 ML UDC PO SCH ×2 (09:19→15:00)
[2021-12-19] MEDS: RIFAXIMIN 550 MG TABLET PO SCH (09:20)
[2021-12-19] MEDS: DOCUSATE SODIUM 100 MG CAPSULE PO PRN (09:20)
[2021-12-19] MEDS ORDERED: RIFA550T5 PO (10:50)
[2021-12-19] MEDS ORDERED: LIB25 PO (11:18)
[2021-12-19 11:32] VITALS: BP_SYST 96
--- NOTE | 2021-12-19 12:51 | NUR ---
CM: faxed /PT order and referral package to Katie , PT eval is pending. Addendum: 12/19/21 at 1455 by Michel Decker RN per Eliza/Katie: [facility] is accepting , tel # [phone]. Repeat Covid screening ordered and to fax the result copy to Eliza prior to discharge. Informed pt is not ready for dc today due to pending PT eval, high ammonia level.
[2021-12-19 15:39] VITALS: BP_SYST 90
[2021-12-19 17:07] VITALS: BP_SYST 95
--- NOTE | 2021-12-19 17:38 | NUR ---
P.T. NOTES P.T. EVAL COMPLETED; REFER TO EVAL FOR DETAILS.
[2021-12-20 11:06] LABS: HEPATITIS A AB, IgM Negative (Negative); HEPATITIS B CORE AB, IgM Negative (Negative); HEPATITIS B SURFACE AG Negative (Negative)
== END 2021-12-19 17:30 | disposition home health service (06) | DRG 280 ==
LOC: SED 12:05 → STU 17:16 → SMU 12-17 08:39
PROVIDERS: ADMIT Family Medicine; ATTEND General Practice
DX: K74.60 Unspecified cirrhosis of liver (principal); K70.10 Alcoholic hepatitis without ascites; G93.41 Metabolic encephalopathy; I50.43 Acute on chronic combined systolic (congestive) and diastolic (congestive) heart failure; F10.231 Alcohol dependence with withdrawal delirium; E44.0 Moderate protein-calorie malnutrition; J18.9 Pneumonia, unspecified organism; I42.0 Dilated cardiomyopathy; I11.0 Hypertensive heart disease with heart failure; E87.1 Hypo-osmolality and hyponatremia; E88.09 Other disorders of plasma-protein metabolism, not elsewhere classified; F10.229 Alcohol dependence with intoxication, unspecified; G90.9 Disorder of the autonomic nervous system, unspecified; Y90.9 Presence of alcohol in blood, level not specified; R74.01 Elevation of levels of liver transaminase levels; F17.210 Nicotine dependence, cigarettes, uncomplicated; R74.8 Abnormal levels of other serum enzymes; E87.5 Hyperkalemia; Z68.20 Body mass index [BMI] 20.0-20.9, adult; Z20.822 Contact with and (suspected) exposure to COVID-19
CPT/HCPCS: 36415; 36600; 70450-TC; 71045; 76376; 80048; 80053; 80061; 80074; 80076; 80307; 81000; 82105; 82140; 82550; 82553; 82803-TC; 83036; 83605; 83735; 83880; 84156; 84443; 84484; 85025; 85610-TC; 87040; 93005; 93306; 96365; 96372; 96375; 96376; 97112-GP; 97116-GP; 99291; G0378; J0696; J1630; J1940; J2060; J2270; J2405; J3411; J3475; J3480; J3490; J7030; J7050

== ENCOUNTER 2024-03-22 16:18 | Inpatient (IN) | payer MEDICAID ==
[~2024-03-22] VITALS: Ht 182.9 cm; Wt 86.6 kg
[~2024-03-22 16:18] MED LIST: CARV6.2554 PO; LACT10SO6 PO; RIFA550T5 PO
[2024-03-22 16:20] VITALS: BP_SYST 132; PULSE 107; RESP 18; TEMP 97.3; O2SAT 100
[2024-03-22 18:08] LABS: COVID19 ANTIGEN SOFIA FIA NEGATIVE (NEGATIVE)
[2024-03-22 18:21] LABS: INFLUENZA TYPE A Negative (NEGATIVE); INFLUENZA TYPE B NEGATIVE (NEGATIVE)
[2024-03-22 20:17] LABS: BASOPHILS # (AUTO) 0.1 K/uL (0.0-0.2); EOSINOPHILS # (AUTO) 0.1 K/uL (0.0-0.4); HEMOGLOBIN 12.4 g/dL (14.0-18.0); LYMPHOCYTES # (AUTO) 1.5 K/uL (1.0-5.5); MEAN CORPUSCULAR VOLUME 84 fL (79.0-98.0)
[2024-03-22 20:46] LABS: ANION GAP 16 (5-15); CALCIUM 8.9 mg/dL (8.4-11.0); CARBON DIOXIDE 20 mmol/L (23-29); CHLORIDE 94 mmol/L (98-107); CREATININE 1.29 mg/dL (0.55-1.30); GFR AFRICAN AMERICAN 78 mL/min (>90); GLUCOSE 98 mg/dL (74-106); POTASSIUM 3.4 mmol/L (3.5-5.1); SODIUM SERUM 130 mmol/L (136-145); UREA NITROGEN, BLOOD 32 mg/dL (8-21)
[2024-03-22 20:49] LABS: BASOPHILS % (AUTO) 1.1 % (0.0-2.0); HEMATOCRIT 36.7 % (36-54); LYMPHOCYTES % (AUTO) 16.6 % (20.5-51.5); MEAN CORPUSCULAR HEMOGLOBIN 28 pg (27-31); MEAN CORPUSCULAR HGB CONC 34 % (32-36); MONOCYTES # (AUTO) 1.3 K/uL (0.0-1.0); MONOCYTES % (AUTO) 14.7 % (1.7-9.3); NEUTROPHILS # (AUTO) 5.8 K/uL (1.8-7.7); NEUTROPHILS % (AUTO) 66.6 % (40.0-70.0); PLATELET COUNT (AUTO) 337 K/uL (130-430); RED CELL DISTRIBUTION WIDTH 19.5 % (9.0-15.0); WHITE BLOOD COUNT (AUTO) 8.7 K/uL (4.8-10.8)
[2024-03-22 20:50] LABS: GFR NON AFRICAN-AMERICAN 65 mL/min (>90)
[2024-03-22] MEDS: guaiFENesin/DEXTROMETHORPHAN 10 ML UDC PO ONE (20:53)
[2024-03-22] MEDS: LevALBUTEROL HCL 1.25 MG/0.5 ML *CONC.* VIAL.NEB (XOPENEX CONC.) INH ONE (21:14)
[2024-03-22] MEDS: ASPIRIN 81 MG TABLET(ECOTRIN) PO ONE (21:33)
[2024-03-22] MEDS: KETOROLAC TROMETHAMINE 30 MG VIAL IVP ONE (21:34)
[2024-03-22] MEDS: FUROSEMIDE 40 MG/4 ML VIAL IVP ONE (21:35)
[2024-03-22] MEDS ORDERED: LIP40 PO (21:48)
[2024-03-22] MEDS ORDERED: METO5TAB7 PO (21:48)
[2024-03-22] MEDS ORDERED: SACU1TAB PO (21:48)
[2024-03-22] MEDS ORDERED: DAPA10TA PO (21:48)
[2024-03-22] MEDS ORDERED: BUME2TAB7 PO (21:48)
[2024-03-22] MEDS ORDERED: BUSP5TAB3 PO (21:48)
[2024-03-22] MEDS ORDERED: SPIR25TA6 PO (21:48)
[2024-03-22] MEDS ORDERED: COR3.125 PO (21:48)
[2024-03-22 23:53] VITALS: BP_SYST 107; PULSE 73; RESP 18; TEMP 97.5
[2024-03-23] VITALS (7 sets, daily range): BP systolic 98–103; PULSE 77–101; RESP 12–18; TEMP 98–98.6; O2SAT 95–100
[2024-03-23] MEDS ORDERED: INSULIN REGULAR, HUMAN 100 UNITS/ML, 3 ML VIAL (humuLIN R) SUBCUT PRN (11:00)
[2024-03-23] MEDS ORDERED: NALOXONE HCL 0.4 MG/ML AMP (NARCAN) IVP PRN ×2 (11:00)
[2024-03-23] MEDS ORDERED: HYDROcodone/ACETAMIN 5-325 MG TAB (NORCO/ VICODIN) PO PRN (11:00)
[2024-03-23] MEDS ORDERED: LORazepam 2 MG/ML VIAL IVP PRN (11:00)
[2024-03-23] MEDS ORDERED: ONDANSETRON HCL 4 MG/2 ML VIAL IVP PRN (11:00)
[2024-03-23] MEDS ORDERED: DAPAGLIFLOZIN PROPANEDIOL NF 5 MG TABLET PO SCH (11:00)
[2024-03-23] MEDS ORDERED: ACETAMINOPHEN 325 MG TABLET PO PRN (11:45)
[2024-03-23] MEDS: POTASSIUM CHLORIDE 20 MEQ TABLET.ER PO ONE (12:38)
[2024-03-23] MEDS: metOLazone 5 MG TABLET PO ONE (12:40)
[2024-03-23] MEDS: HYDROcodone/ACETAMIN 10-325 MG TAB PO PRN (14:03)
[2024-03-23] MEDS: NORMAL SALINE 5 ML DISP.SYRIN IVF SCH (14:04)
[2024-03-23 14:25] LABS: BASOPHILS # (AUTO) 0.1 K/uL (0.0-0.2); BASOPHILS % (AUTO) 1.3 % (0.0-2.0); EOSINOPHILS # (AUTO) 0.1 K/uL (0.0-0.4); EOSINOPHILS % (AUTO) 1.9 % (0.0-4.0); HEMATOCRIT 36.4 % (36-54); HEMOGLOBIN 12.1 g/dL (14.0-18.0); LYMPHOCYTES # (AUTO) 1.2 K/uL (1.0-5.5); LYMPHOCYTES % (AUTO) 15.6 % (20.5-51.5); MEAN CORPUSCULAR HEMOGLOBIN 28 pg (27-31); MEAN CORPUSCULAR HGB CONC 33 % (32-36); MEAN CORPUSCULAR VOLUME 84 fL (79.0-98.0); MONOCYTES # (AUTO) 0.8 K/uL (0.0-1.0); MONOCYTES % (AUTO) 10.3 % (1.7-9.3); NEUTROPHILS # (AUTO) 5.6 K/uL (1.8-7.7); NEUTROPHILS % (AUTO) 70.9 % (40.0-70.0); PLATELET COUNT (AUTO) 321 K/uL (130-430); RED BLOOD CELL COUNT(AUTO) 4.34 MIL/uL (4.2-6.2); RED CELL DISTRIBUTION WIDTH 19.9 % (9.0-15.0)
[2024-03-23 14:27] LABS: CALCIUM 8.5 mg/dL (8.4-11.0); CREATININE 1.38 mg/dL (0.55-1.30); POTASSIUM 3.6 mmol/L (3.5-5.1)
[2024-03-23] MEDS: guaiFENesin/DEXTROMETHORPHAN 10 ML UDC PO PRN (15:10)
[2024-03-23] MEDS: CARVEDILOL 3.125 MG TABLET (COREG) PO SCH (21:00)
[2024-03-23] MEDS: SPIRONOLACTONE 25 MG TABLET (ALDACTONE) PO SCH (22:02)
[2024-03-23] MEDS: ATORVASTATIN 20 MG TABLET PO SCH (22:03)
[2024-03-23] MEDS: BUMETANIDE 1 MG TABLET PO SCH (22:04)
[2024-03-23] MEDS: busPIRone HCL 5 MG TABLET PO SCH (22:05)
[2024-03-23] MEDS: SACUBITRIL/VALSARTAN 24 MG-26 MG 1 TABLET PO SCH (22:05)
[2024-03-23] MEDS: MILK OF MAGNESIA 30 ML UDC PO PRN (22:17)
[2024-03-23 23:12] LABS: BARBITURATE, URINE NEGATIVE (NEG <=200); BENZODIAZEPINE, URINE NEGATIVE (NEG <=150); CANNABINOID, URINE NEGATIVE (NEG <=50); COCAINE, URINE NEGATIVE (NEG <=150); METHAMPHETAMINES SCREEN,URINE NEGATIVE (NEG <=500); OPIATE, URINE POSITIVE (NEG <=100); PHENCYCLIDINE SCREEN,URINE NEGATIVE (NEG <=25); UR TRICYCLIC ANTIDEPRESSANTS NEGATIVE (NEG <=300); URINE AMPHETAMINE NEGATIVE (NEG <=500); URINE METHADONE NEGATIVE (NEG <=200); URINE OXYCODONE SCREEN NEGATIVE (NEG <=100)
[2024-03-23] MEDS: ZOLPIDEM TARTRATE 5 MG TABLET PO PRN (23:32)
[2024-03-24 00:42] VITALS: BP_SYST 109; PULSE 86; RESP 16; TEMP 97.2; O2SAT 99
[2024-03-24 07:57] LABS: BASOPHILS # (AUTO) 0.1 K/uL (0.0-0.2); BASOPHILS % (AUTO) 0.8 % (0.0-2.0); EOSINOPHILS # (AUTO) 0.2 K/uL (0.0-0.4); EOSINOPHILS % (AUTO) 2.1 % (0.0-4.0); HEMATOCRIT 38.2 % (36-54); HEMOGLOBIN 12.6 g/dL (14.0-18.0); LYMPHOCYTES # (AUTO) 1.3 K/uL (1.0-5.5); LYMPHOCYTES % (AUTO) 18.3 % (20.5-51.5); MEAN CORPUSCULAR HEMOGLOBIN 28 pg (27-31); MEAN CORPUSCULAR HGB CONC 33 % (32-36); MEAN CORPUSCULAR VOLUME 85 fL (79.0-98.0); MONOCYTES # (AUTO) 0.8 K/uL (0.0-1.0); MONOCYTES % (AUTO) 11.5 % (1.7-9.3); NEUTROPHILS # (AUTO) 4.8 K/uL (1.8-7.7); NEUTROPHILS % (AUTO) 67.3 % (40.0-70.0); PLATELET COUNT (AUTO) 325 K/uL (130-430); RED BLOOD CELL COUNT(AUTO) 4.48 MIL/uL (4.2-6.2); RED CELL DISTRIBUTION WIDTH 19.9 % (9.0-15.0); WHITE BLOOD COUNT (AUTO) 7.1 K/uL (4.8-10.8)
[2024-03-24 08:11] VITALS: O2SAT 100
[2024-03-24 08:18] VITALS: BP_SYST 104; PULSE 85; RESP 18; TEMP 97.4; O2SAT 100
[2024-03-24 08:39] LABS: ALBUMIN 3.2 g/dL (3.4-4.8); CALCIUM 8.6 mg/dL (8.4-11.0); CREATININE 1.32 mg/dL (0.55-1.30); PHOSPHORUS 3.8 mg/dL (2.7-4.5); POTASSIUM 3.1 mmol/L (3.5-5.1); TOTAL BILIRUBIN 3.3 mg/dL (0.0-1.0)
[2024-03-24] MEDS: EMPAGLIFLOZIN 10 MG TABLET PO SCH (09:00)
[2024-03-24] MEDS: metOLazone 5 MG TABLET PO SCH (09:00)
[2024-03-24] MEDS: POTASSIUM CHLORIDE 20 MEQ TABLET.ER PO ONE (11:39)
[2024-03-24 12:02] VITALS: BP_SYST 104; PULSE 82; RESP 18; TEMP 98.1; O2SAT 100
[2024-03-24 16:00] VITALS: BP_SYST 98; PULSE 78; RESP 18; TEMP 97.2; O2SAT 100
[2024-03-24] MEDS: ACETAMINOPHEN 325 MG TABLET PO PRN (18:44)
[2024-03-24 20:00] VITALS: BP_SYST 89; PULSE 79; RESP 18; TEMP 97.4; O2SAT 99
[2024-03-25 00:15] VITALS: BP_SYST 87; PULSE 77; RESP 18; TEMP 97.1; O2SAT 100
[2024-03-25 07:16] LABS: BASOPHILS # (AUTO) 0.1 K/uL (0.0-0.2); BASOPHILS % (AUTO) 0.8 % (0.0-2.0); EOSINOPHILS # (AUTO) 0.2 K/uL (0.0-0.4); EOSINOPHILS % (AUTO) 2.6 % (0.0-4.0); HEMATOCRIT 39.1 % (36-54); HEMOGLOBIN 12.7 g/dL (14.0-18.0); LYMPHOCYTES # (AUTO) 1.2 K/uL (1.0-5.5); LYMPHOCYTES % (AUTO) 16.4 % (20.5-51.5); MEAN CORPUSCULAR HEMOGLOBIN 28 pg (27-31); MEAN CORPUSCULAR HGB CONC 33 % (32-36); MEAN CORPUSCULAR VOLUME 85 fL (79.0-98.0); MONOCYTES # (AUTO) 0.7 K/uL (0.0-1.0); MONOCYTES % (AUTO) 9.9 % (1.7-9.3); NEUTROPHILS # (AUTO) 5.1 K/uL (1.8-7.7); NEUTROPHILS % (AUTO) 70.3 % (40.0-70.0); PLATELET COUNT (AUTO) 295 K/uL (130-430); RED CELL DISTRIBUTION WIDTH 20.5 % (9.0-15.0); WHITE BLOOD COUNT (AUTO) 7.2 K/uL (4.8-10.8)
[2024-03-25 07:26] LABS: CALCIUM 8.4 mg/dL (8.4-11.0); CREATININE 1.18 mg/dL (0.55-1.30); PHOSPHORUS 2.7 mg/dL (2.7-4.5); POTASSIUM 3.3 mmol/L (3.5-5.1)
[2024-03-25 08:00] VITALS: BP_SYST 109; PULSE 121; RESP 16; TEMP 98.4; O2SAT 98
[2024-03-25 09:10] VITALS: O2SAT 98
[2024-03-25] MEDS: POTASSIUM CHLORIDE 20 MEQ TABLET.ER PO ONE (11:27)
[2024-03-25] MEDS: BUMEX 1 MG/4 ML VIAL IVP ONE (11:58)
[2024-03-25] MEDS: NS 500 ML IV ONE (12:32)
[2024-03-25 12:42] LABS: TOTAL IRON BIND. CAPACITY 394 ug/dL (250-450)
[2024-03-25 20:35] VITALS: O2SAT 97
[2024-03-26 08:06] LABS: ALPHA-1-ANTITRYPSIN, S 245 mg/dL (101-187)
[2024-03-26 10:07] LABS: AFP, TUMOR MARKER 3.4 ng/mL (0.0-6.9); HEPATITIS A AB, IgM Negative (Negative); HEPATITIS B CORE AB, IgM Negative (Negative); HEPATITIS B SURFACE AG Confirm. indicated (Negative); HEPATITIS C VIRUS AB Non Reactive (Non Reactive)
[2024-03-26 16:06] LABS: ANTI NUCLEAR AB WITH REFLEX Negative (Negative)
[2024-03-27 08:06] LABS: HEPATITIS B SURFACE AG CONF Negative (.)
[2024-03-27 11:07] LABS: ANTI-SMOOTH MUSCLE AB 26 Units (0-19)
== END 2024-03-26 23:00 | disposition home or self-care (01) | DRG 194 ==
LOC: SED 16:18 → OBSVTOIN 22:33 → STU 22:33 → UNDODISIN 03-27 23:00
PROVIDERS: ADMIT Preventive Medicine Preventive Medicine/Occupational Environmental Medicine; ATTEND Preventive Medicine Preventive Medicine/Occupational Environmental Medicine
DX: I13.0 Hypertensive heart and chronic kidney disease with heart failure and stage 1 through stage 4 chronic kidney disease, or unspecified chronic kidney disease (principal); E43 Unspecified severe protein-calorie malnutrition; N17.9 Acute kidney failure, unspecified; I42.9 Cardiomyopathy, unspecified; E88.09 Other disorders of plasma-protein metabolism, not elsewhere classified; E87.1 Hypo-osmolality and hyponatremia; D63.8 Anemia in other chronic diseases classified elsewhere; K74.60 Unspecified cirrhosis of liver; Z20.822 Contact with and (suspected) exposure to COVID-19; I50.43 Acute on chronic combined systolic (congestive) and diastolic (congestive) heart failure; N18.2 Chronic kidney disease, stage 2 (mild); E87.6 Hypokalemia; Z68.25 Body mass index [BMI] 25.0-25.9, adult; Z79.899 Other long term (current) drug therapy
CPT/HCPCS: 36415; 71045; 76700; 80048; 80053; 80074; 80307; 82103; 82105; 82390; 83516; 83540; 83550; 83735; 83880; 84100; 84484; 85025; 86038; 93005; 93306; 94640; 96374; 96375; 99285; G0378; J1815; J1885; J1940; J7040; J7612